=== PATIENT | male | born 1995 | race Caucasian/White ===

== ENCOUNTER 2020-11-23 00:02 | Emergency (ER) | payer BC, SELFPAY ==
[2020-11-23 00:08] VITALS: BP 127/78; PULSE 71; RESP 16; TEMP 36.8; O2SAT 100; BMI 26.6
--- NOTE | 2020-11-23 00:13 | HMH.EDDENT ---
ED Disposition Clinical Impression: Pain, dental, Infected dental caries Disposition: Home, Self-Care Condition on Discharge: Good Instructions: DI for Dental Pain Additional Instructions: see dentist and use meds Prescriptions: clindamycin HCL [Clindamycin HCl] 300 mg PO TID #21 cap Transmission Status: Pending to [facility] [id number] Ketorolac Tromethamine [Toradol 10mg tablet] 10 mg PO Q6HP PRN #10 tab MDD 40mg/day PRN Reason: Moderate To Severe Pain Transmission Status: Pending to [facility] [id number] - Critical Care Critical Care Time: No Attestation: On , the high probability of a clinically significant, sudden or life threatening deterioration of the following system(s) required my full and direct attention, intervention and personal management. The time I documented below is in addition to time spent performing reported procedures but includes the following listed in this critical care notation. Medical Decision Making - Medical Records Medical records reviewed: Yes: I reviewed the patient's medical records. - Arthur Inquiry Pt receiving controlled substance: No Vital Signs: 11/23/20 00:08 Temperature 98.3 F Temperature Source Oral Pulse Rate [Right Brachial] 71 Respiratory Rate 16 Blood Pressure [Right Arm] 127/78 Blood Pressure Mean [Right Arm] 94 Blood Pressure Source [Right Arm] Automatic Cuff Blood Pressure Position [Right Arm] Sitting 02 Sat by Pulse Oximetry 100 Oxygen Delivery Method Room Air Dental HPI - General Chief complaint: Dental/Oral Stated complaint: Toothache Time Seen by Provider: 11/23/20 00:10 Mode of Arrival: Family Vehicle Source of Information: Patient, Medical Record Limitations: No Limitations Description of Symptoms (Recalled from ER Triage Doc. by RN): left low jaw pain - History of Present Illness HPI Narrative: pt with dental pain lt lower over the last few days MD Complaint: tooth pain Onset (ago): day(s) Severity: moderate Context: history of dental caries Associated symptoms: gum swelling Treatment prior to arrival: oral analgesic - Related Data Previous Rx's Medication Instructions Recorded Ketorolac Tromethamine [Toradol 10 mg PO Q6HP PRN #10 tab MDD 11/23/20 10mg tablet] 40mg/day clindamycin HCL [Clindamycin HCl] 300 mg PO TID #21 cap 11/23/20 Allergies Allergy/AdvReac Type Severity Reaction Status Date / Time No Known Allergies Allergy Verified 11/23/20 00:11 [facility] History - Hepatitis A Screen Drug use history?: No High risk sexual behaviors?: No History of sexually transmitted infection?: No Currently employed?: No Childcare worker?: No Do you have indoor plumbing?: No Do you have electricity?: No Attestation statement:: This patient has been screened for Hepatitis A risk factors. I have reviewed the patient's past medical history: Yes ROS Obtained: Yes All systems reviewed & no additional complaints - Constitutional Constitutional: Denies fever(s) - Eyes Eyes: Denies change in vision - ENT Ears, Nose, Mouth, and Throat: Reports as per HPI, Reports dental pain, Denies sore throat - Cardiovascular Cardiovascular: Denies chest pain - Respiratory Respiratory: Denies cough - Gastrointestinal Gastrointestingal: Denies: abdominal pain - Genitourinary Male Genitourinary: Denies hematuria - Musculoskeletal Musculoskeletal: Denies joint pain, Denies joint swelling - Integumentary/Breasts Skin/Breast: Denies rash - Neurologic Neurologic: Denies headache(s), Denies seizure-like activity Physical Exam - General General appearance: alert - Head Head exam: normocephalic - Eye Eye exam: Present: PERRL, EOMI. Absent: scleral icterus - ENT ENT exam: Present: mucous membranes moist - Expanded ENT Exam Teeth exam: Present: dental caries, gingival swelling - Neck Neck exam: Present: full ROM, trachea midline - Respiratory Respiratory exam: Absent: respiratory distress
[2020-11-23 00:19] VITALS: BP 123/70; PULSE 78; RESP 18; TEMP 37.1; O2SAT 98
== END 2020-11-23 00:32 | disposition home or self-care (01) ==
PROVIDERS: Emergency Provider Emergency Medicine
DX: K02.9 Dental caries, unspecified (principal); K08.89 Other specified disorders of teeth and supporting structures
CPT/HCPCS: 96372; 99282

== ENCOUNTER → 2021-06-18 08:22 | Outpatient (CLI) | payer BC, SELFPAY | PROVIDERS: Visit Provider Nurse Practitioner | DX: Z20.822 Contact with and (suspected) exposure to COVID-19 (principal) | CPT/HCPCS: C9803; U0003; U0005 ==

== ENCOUNTER 2021-07-25 14:30 | Emergency (ER) | payer BC, SELFPAY ==
[2021-07-25 14:42] VITALS: BP 0/0; PULSE 0; RESP 0; TEMP -17.7; TEMP 0
== END 2021-07-25 14:43 | disposition left against medical advice (07) ==
PROVIDERS: Emergency Provider Nurse Practitioner Family
DX: Z53.21 Procedure and treatment not carried out due to patient leaving prior to being seen by health care provider (principal)

== ENCOUNTER 2021-07-25 20:48 | Emergency (ER) | payer BC, SELFPAY ==
[2021-07-25 20:50] VITALS: BP 131/91; PULSE 77; RESP 18; TEMP 37; O2SAT 99; BMI 21.7
--- NOTE | 2021-07-25 20:57 | HMH.EDUTC ---
[facility] Disposition Clinical Impression: Infected dental caries, Pain, dental Disposition: Home, Self-Care Condition on Discharge: Good Instructions: DI for Dental Pain, DI for Tooth Decay Additional Instructions: follow up with dentist edy dental balls q6 for pain tylenol or motrin as needed for pain return or be seen in ed if no improvement Prescriptions: Amoxicillin [Amoxicillin 500mg Tab] 500 mg PO BID 10 Days #20 tab Transmission Status: Pending to [id number] Referrals: Provider,Referral, MD [Primary Care Provider] - Time of Disposition: 21:04 Medical Decision Making - Arthur Inquiry Pt receiving controlled substance: No Vital Signs: 07/25/21 20:50 Temperature 98.6 F Temperature Source Oral Pulse Rate [Right Brachial] 77 Respiratory Rate 18 Blood Pressure [Right Arm] 131/91 H Blood Pressure Mean [Right Arm] 104 Blood Pressure Source [Right Arm] Automatic Cuff Blood Pressure Position [Right Arm] Sitting 02 Sat by Pulse Oximetry 99 Oxygen Delivery Method Room Air Orders (Tests/Meds): ED MEDICATIONS Discontinued Medications Generic Name Dose Route Start Last Admin Trade Name Steven PRN Reason Stop Dose Admin Benzocaine/Butamben/Tetracaine HCl 1 gm 07/25/21 20:56 07/25/21 20:57 Tetracaine/Benzocaine/Butamben 56 Gm [place] TP 07/25/21 20:57 1 gm ONCE ONE Administration Lidocaine HCl 15 ml 07/25/21 20:56 07/25/21 20:57 Lidocaine 2% Viscous Sharifa 15ml Udc PO 07/25/21 20:57 15 ml ONCE ONE Administration [facility] HPI - General Chief complaint: Urgent Treatment Center Stated complaint: right sided tooth ache Time Seen by Provider: 07/25/21 20:57 Mode of Arrival: Ambulatory Source of Information: Patient Limitations: No Limitations Description of Symptoms (Recalled from Triage Doc. by RN): PATIENT C/O DENTAL PAIN TO LEFT LOWER SIDE X 4 DAYS HEENT Symptoms (Recalled from RN notes): Yes Resp Symptoms (Recalled from RN notes): No Skin Symptoms (Recalled from RN notes): No MS Symptoms (Recalled from RN notes): No Functional Status (Recalled from RN notes): WNL - History of Present Illness Provider Complaint: 25 yr old male presents for dental pain for 4 days. pt states he seen a dentist and had a tooth worked on and pain improved but as soon as the numbness wore off the pain returned. he has tried to call the dentisit with no answer. Pt states he has a tooth on the bottom that is also bad broken at gum line and he is unsure if pain is coming from tooth that is fixed ot the broken tooth. he was not placed on antibiotics - Related Data Previous Rx's Medication Instructions Recorded Amoxicillin [Amoxicillin 500mg Tab] 500 mg PO BID 10 Days #20 tab 07/25/21 Allergies Allergy/AdvReac Type Severity Reaction Status Date / Time No Known Allergies Allergy Verified 11/23/20 00:11 - Worker's Comp Is this a Worker's Comp case?: No [facility] History - Hepatitis A Screen Drug use history?: No High risk sexual behaviors?: No History of sexually transmitted infection?: No Currently employed?: No Childcare worker?: No Do you have indoor plumbing?: Yes Do you have electricity?: Yes Attestation statement:: This patient has been screened for Hepatitis A risk factors. I have reviewed the patient's past medical history: Yes ROS Obtained: Yes Systems reviewed as appropriate & no additional complaints - Constitutional Constitutional: Reports system reviewed and no additional complaints, except as zachu, Denies fever(s) - Eyes Eyes: Reports system reviewed and no additional complaints, except as ulices Denies dry eyes - ENT Ears, Nose, Mouth, and Throat: Reports system reviewed and no additional complaints, except as zachu, Reports dental pain - Cardiovascular Cardiovascular: Reports system reviewed and no additional complaints, except as zachu, Denies chest pain - Respiratory Respiratory: Reports system reviewed and no additional complaints, except as ulices D
[2021-07-25 20:58] VITALS: BP 131/91; PULSE 77; RESP 18; TEMP 37; O2SAT 99
== END 2021-07-25 21:08 | disposition home or self-care (01) ==
PROVIDERS: Emergency Provider Nurse Practitioner Family
DX: K02.9 Dental caries, unspecified (principal); K08.89 Other specified disorders of teeth and supporting structures
CPT/HCPCS: 99202; 99212; 99213; G0463

== ENCOUNTER 2021-07-25 21:15 | Emergency (ER) | payer BC, SELFPAY ==
[2021-07-25 21:15] VITALS: BP 160/78; PULSE 78; RESP 16; TEMP 36.4; O2SAT 100; BMI 21.7
--- NOTE | 2021-07-25 21:48 | HMH.EDDENT ---
ED Disposition Clinical Impression: Pain, dental, Infected dental caries Disposition: Home, Self-Care Condition on Discharge: Good Instructions: DI for Dental Pain Additional Instructions: see dentist and pcp for follow up Prescriptions: Ketorolac Tromethamine [Toradol 10mg tablet] 10 mg PO Q6HP PRN #10 tab MDD 40mg/day PRN Reason: Moderate To Severe Pain Transmission Status: Pending to [id number] Referrals: Provider,Referral, MD [Primary Care Provider] - - Critical Care Critical Care Time: No Attestation: On 07/25/21, the high probability of a clinically significant, sudden or life threatening deterioration of the following system(s) required my full and direct attention, intervention and personal management. The time I documented below is in addition to time spent performing reported procedures but includes the following listed in this critical care notation. Medical Decision Making - Medical Records Medical records reviewed: Yes: I reviewed the patient's medical records. - Arthur Inquiry Pt receiving controlled substance: No Vital Signs: 07/25/21 21:15 Temperature 97.6 F Temperature Source Oral Pulse Rate [Right] 78 Respiratory Rate 16 Blood Pressure [Right Arm] 160/78 H Blood Pressure Mean [Right Arm] 105 Blood Pressure Source [Right Arm] Automatic Cuff 02 Sat by Pulse Oximetry 100 Oxygen Delivery Method Room Air Medical Decision Narrative: will give toradol and abx and ask pt to see dentist Dental HPI - General Chief complaint: Dental/Oral Stated complaint: tooth pain Time Seen by Provider: 07/25/21 21:48 Mode of Arrival: Family Vehicle Source of Information: Patient, Medical Record Limitations: No Limitations Description of Symptoms (Recalled from ER Triage Doc. by RN): Pt c/o pain to left lower tooth and jaw. Poor dentition is noted, tooth pt is pointing to is brown and several missing teeth in mouth. States I can't get into see a dentist for a while . Denies fever or chills. No swelling or edema present to face or jaw area. States I just need something for pain. Tylenol and Ibuprofen just aren't helping . He was seen in [facility] today and given dental balls, states this has not helped. - History of Present Illness HPI Narrative: has dental pain and presents for follow up has seen [facility] MD Complaint: tooth pain Onset (ago): day(s) Severity: moderate Context: history of dental caries, poor dental care Treatment prior to arrival: topical analgesic - Related Data Previous Rx's Medication Instructions Recorded Amoxicillin [Amoxicillin 500mg Tab] 500 mg PO BID 10 Days #20 tab 07/25/21 Ketorolac Tromethamine [Toradol 10 mg PO Q6HP PRN #10 tab MDD 07/25/21 10mg tablet] 40mg/day Allergies Allergy/AdvReac Type Severity Reaction Status Date / Time No Known Allergies Allergy Verified 11/23/20 00:11 [facility] History - Hepatitis A Screen Drug use history?: No High risk sexual behaviors?: No History of sexually transmitted infection?: No Currently employed?: No Childcare worker?: No Do you have indoor plumbing?: Yes Do you have electricity?: Yes Attestation statement:: This patient has been screened for Hepatitis A risk factors. I have reviewed the patient's past medical history: Yes ROS Obtained: Yes All systems reviewed & no additional complaints - Constitutional Constitutional: Denies fever(s) - Eyes Eyes: Denies change in vision - ENT Ears, Nose, Mouth, and Throat: Reports as per HPI, Reports dental pain, Denies sore throat - Cardiovascular Cardiovascular: Denies chest pain - Respiratory Respiratory: Denies shortness of breath - Gastrointestinal Gastrointestingal: Denies: abdominal pain - Genitourinary Male Genitourinary: Denies hematuria - Musculoskeletal Musculoskeletal: Denies joint swelling - Integumentary/Breasts Skin/Breast: Denies rash - Neurologic Neurologic: Denies seizure-like activity Physical Exam -
[2021-07-25 22:00] VITALS: BP 154/78; PULSE 64; RESP 16; TEMP 36.7; O2SAT 99
== END 2021-07-25 22:06 | disposition home or self-care (01) ==
PROVIDERS: Emergency Provider Emergency Medicine
DX: K08.89 Other specified disorders of teeth and supporting structures (principal); K02.9 Dental caries, unspecified
CPT/HCPCS: 96372; 99281; 99283

== ENCOUNTER 2021-08-04 11:07 | Emergency (ER) | payer BC, SELFPAY ==
[2021-08-04 11:26] VITALS: BP 128/72; PULSE 78; RESP 16; TEMP 37.3; O2SAT 98; BMI 21.7
--- NOTE | 2021-08-04 11:44 | HMH.EDUTC ---
[facility] [place] Disposition Clinical Impression: Encounter for laboratory testing for COVID-19 virus Disposition: Home, Self-Care Condition on Discharge: Good Instructions: Diarrhea, DI for COVID-19 (Suspected or Confirmed ) Additional Instructions: *Monitor Temp, Over the counter Motrin or Tylenol as directed/as needed Tylenol every 4 hours and Motrin every 6 hours (as long as your family doctor has told you that you can take it) for fever or pain. and straight to ER if unable to lower temp less than 101.0 after medication given *Warm salt water gargles may help to soothe the throat *Throat Lozenges *Warm fluids like tea with honey may help to soothe the throat *Sleep elevated *Humidifier/Vaporizer Follow up IMMEDIATELY for new or worsening symptoms or no Noticeable improvement over the next 48-72 hours. 911 for difficulty breathing or swallowing You were tested for today for COVID19 your test result should be back in the next 24-48 hours, you may check your results on the [facility] if you have trouble logging on you may call support If you are positive someone from the hospital will be calling you Make sure to take your Vitamins Vit. C Vit D and Zinc if you can take them Referrals: Provider,Referral, MD [Primary Care Provider] - As needed Forms: Work/School Release Time of Disposition: 11:55 Medical Decision Making - Arthur Inquiry Pt receiving controlled substance: No Arthur was queried for this patient: No Vital Signs: 08/04/21 11:26 Temperature 99.1 F Temperature Source Oral Pulse Rate [Left Radial] 78 Respiratory Rate 16 Blood Pressure [Left Arm] 128/72 Blood Pressure Mean [Left Arm] 90 Blood Pressure Source [Left Arm] Automatic Cuff Blood Pressure Position [Left Arm] Sitting 02 Sat by Pulse Oximetry 98 Oxygen Delivery Method Room Air Orders (Tests/Meds): ORDERS Category Date Time Status Covid-19 Nasal PCR ([facility]) Routine Lab 08/04/21 11:21 Received [facility] HPI - General Stated complaint: wants Covid test,body aches Time Seen by Provider: 08/04/21 11:44 Mode of Arrival: Ambulatory Source of Information: Patient Limitations: No Limitations Description of Symptoms (Recalled from Triage Doc. by RN): pt requesting covid swab. Pt c/o body aches, diarrhea, and headache x2 days. States no known exposure. HEENT Symptoms (Recalled from RN notes): No Resp Symptoms (Recalled from RN notes): No Skin Symptoms (Recalled from RN notes): No MS Symptoms (Recalled from RN notes): No Functional Status (Recalled from RN notes): n/a - History of Present Illness Provider Complaint: Patient states that he has been having body aches, chills, medrano and diarrhea States that he wanted to get tested for COVID States that he has not been exposed to COVID that he is aware of but wanted to get tested - Related Data Previous Rx's Medication Instructions Recorded Amoxicillin [Amoxicillin 500mg Tab] 500 mg PO BID 10 Days #20 tab 07/25/21 Ketorolac Tromethamine [Toradol 10 mg PO Q6HP PRN #10 tab MDD 07/25/21 10mg tablet] 40mg/day Allergies Allergy/AdvReac Type Severity Reaction Status Date / Time No Known Allergies Allergy Verified 11/23/20 00:11 - Worker's Comp Is this a Worker's Comp case?: No [facility] History - Hepatitis A Screen Drug use history?: No High risk sexual behaviors?: No History of sexually transmitted infection?: No Currently employed?: No Childcare worker?: No Do you have indoor plumbing?: Yes Do you have electricity?: Yes Attestation statement:: This patient has been screened for Hepatitis A risk factors. I have reviewed the patient's past medical history: Yes ROS Obtained: Yes All systems reviewed & no additional complaints, Yes Systems reviewed as appropriate & no additional complaints - Constitutional Constitutional: Reports system reviewed and no additional complaints, except as docu, Reports body ache, Reports chills, Reports fatigue, Reports headache(s) - ENT
[2021-08-04 12:11] VITALS: BP 128/72; PULSE 78; RESP 16; TEMP 37.3; O2SAT 98
== END 2021-08-04 12:11 | disposition home or self-care (01) ==
PROVIDERS: Emergency Provider Nurse Practitioner
DX: Z20.822 Contact with and (suspected) exposure to COVID-19 (principal); B34.9 Viral infection, unspecified
CPT/HCPCS: 99212; C9803; G0463; U0003; U0005

== ENCOUNTER 2021-12-30 15:15 | Emergency (ER) | payer OTHER, SELFPAY ==
[2021-12-30 15:44] VITALS: BP 0/0; PULSE 0; RESP 0; TEMP -17.7; TEMP 0
--- NOTE | 2021-12-30 15:45 | PC.NURSE ---
patient brought paperwork back up to window, and asked if he would be charged for covid test. told patient he would get bill in mail, that we do not charge today. patient stated that he did not want a bill, and was going to leave without being seen for a covid test.
== END 2021-12-30 15:46 | disposition left against medical advice (07) ==
PROVIDERS: Emergency Provider Nurse Practitioner
DX: Z53.21 Procedure and treatment not carried out due to patient leaving prior to being seen by health care provider (principal)

== ENCOUNTER → 2022-03-09 07:50 | Outpatient (CLI) | payer OTHER, SELFPAY ==
--- NOTE | 2022-03-09 07:54 | US_ITS ---
FINAL REPORT CLINICAL HISTORY: RUQ PAIN,N/V,COLITIS,ABD PAIN FINDINGS: Sonographic images of the abdomen were obtained. The liver has an unremarkable appearance with normal echogenicity. There is sludge in the gallbladder. There is a small polyp in the anterior gallbladder wall measuring 4 mm. There is no evidence of biliary ductal dilatation. The common hepatic duct measures 3 mm, which is within normal limits. Limited images of the pancreas are unremarkable. The spleen size is normal. The right kidney measures 10.8 cm in length. The left kidney measures 10.0 cm in length. There is normal renal echogenicity. There is no evidence of hydronephrosis. The aorta has an unremarkable appearance. Limited images of the inferior vena cava are unremarkable. IMPRESSION: Unremarkable abdominal ultrasound with no acute abnormality identified. Reviewed, Interpreted and Dictated by Chadd Underwood III, MD Transcribed by Ying Esquivel Authenticated and [facility]
== END ==
LOC: RAD 07:50
PROVIDERS: PCP Nurse Practitioner Family; Visit Provider Nurse Practitioner Family
DX: R10.11 Right upper quadrant pain (principal); R10.84 Generalized abdominal pain; R11.0 Nausea; R11.10 Vomiting, unspecified; K52.831 Collagenous colitis
CPT/HCPCS: 76700

== ENCOUNTER 2022-05-11 14:36 | Emergency (ER) | payer OTHER, SELFPAY ==
[2022-05-11 16:20] VITALS: BP 131/79; PULSE 84; RESP 19; TEMP 36.8; O2SAT 98; BMI 20.9
--- NOTE | 2022-05-11 16:33 | EXP.UTC ---
Discharge Plan Disposition Patient Disposition: Home, Self-Care Condition: Good Prescriptions Prescriptions: New polymyxin B sulf-trimethoprim [Polytrim] 10,000 unit- 1 mg/mL drops 2 drp ophthalmic (eye) Q6H 7 Days Qty: 10 0RF Rx Instructions: while awake; do not exceed 6 doses in 24 hours pseudoephedrine HCl [Sudafed 12 Hour] 120 mg tablet extended release 120 mg PO Q12H PRN (Reason: nasal congestion) Qty: 10 0RF No Action ketorolac 10 MG tablet 10 mg PO Q6HP MDD 40mg/day PRN (Reason: Moderate To Severe Pain) Qty: 10 0RF Rx Instructions: Therapy initiated with IV/IM dose amoxicillin 500 MG tablet 500 mg PO BID 10 Days Qty: 20 0RF Referrals Follow up/Referrals: Provider,Referral, MD [Primary Care Provider] - See instructions Activity Restrictions/Add. Instructions Additional Instructions/Restrictions: Wash hands well before and after applying drops to eyes Warm wash rag and baby shampoo can help to clear matting and drainage from eyes Take Sudafed as prescribed for nasal congestion Return if needed Follow up with Eye Doctor if no improvement or any worsening of symptoms Clinical Impressions Clinical Impression: Conjunctivitis Stand Alone Forms Stand Alone Forms: Work/School Release Instructions Patient Instructions: DI for Conjunctivitis, Conjunctivitis, DI for Nasal Congestion Discharge ED Provider: Katheryn Wilson [facility] [place] [facility] HPI General Stated complaint: Rt eye swollen, congestion, runny nose Time Seen by Provider: 05/11/22 16:33 History of Present Illness Provider Complaint: Patient states that his daughter had pink eye last week and he was putting the drops into her eyes and now he woke up and his right eye was puffy and matted and he has been having drainage from his eye that has got worse today States that he has also been having nasal congestion and drainage for about a week that hasnt got any better wanting to see if he could get something for it Related Data Previous Rx's Medication Instructions Recorded amoxicillin 500 mg tablet 500 mg PO BID 10 days #20 tabs 07/25/21 ketorolac 10 mg tablet 10 mg PO Q6HP PRN Moderate To 07/25/21 Severe Pain #10 tabs polymyxin B sulfate 10,000 2 drp ophthalmic (eye) Q6H 7 days 05/11/22 unit-trimethoprim 1 mg/mL eye #10 mL drops (Polytrim) pseudoephedrine HCl 120 mg 120 mg PO Q12H PRN nasal 05/11/22 tablet,extended release (Sudafed congestion #10 tabs 12 Hour) Allergies Allergy/AdvReac Type Severity Reaction Status Date / Time No Known Allergies Allergy Verified 11/23/20 00:11 [facility] Disclaimer: The information contained in this section may have been updated after the patient was seen, as this information can be updated by other users. Medical History (Updated 05/11/22 @ 16:41 by Katheryn Wilson APRN) Anxiety Asthma Social History Smoking Status: Smoker, status unknown alcohol intake: never current occupational status: other Travel in the last 8 weeks: None ROS Obtained: Yes All systems reviewed & no additional complaints except as documented and Yes Systems reviewed as appropriate & no additional complaints except as documented Constitutional Constitutional: Reports system reviewed and no additional complaints, except as documented and Reports as per HPI Eyes Eyes: Reports system reviewed and no additional complaints, except as documented, Reports as per HPI, Reports eye discharge and Reports irritation ENT Ears, Nose, Mouth, and Throat: Reports system reviewed and no additional complaints, except as documented, Reports as per HPI, Reports nasal congestion and Reports nasal discharge Cardiovascular Cardiovascular: Reports system reviewed and no additional complaints, except as documented and Reports as per HPI Respiratory Respiratory: Reports system reviewed and no additional complaints, except as documented and Reports as per HPI Physical Exam General General appearance: alert and in no
[2022-05-11 16:44] VITALS: BP 131/79; PULSE 84; RESP 19; TEMP 36.8; O2SAT 98
== END 2022-05-11 16:51 | disposition home or self-care (01) ==
PROVIDERS: Emergency Provider Nurse Practitioner
DX: H10.9 Unspecified conjunctivitis (principal); R09.81 Nasal congestion; J45.909 Unspecified asthma, uncomplicated; F41.9 Anxiety disorder, unspecified
CPT/HCPCS: 99213; G0463

== ENCOUNTER → 2022-10-29 10:32 | Outpatient (CLI) | payer OTHER, SELFPAY ==
--- NOTE | 2022-10-29 10:53 | XR_ITS ---
FINAL REPORT CLINICAL HISTORY: COUGH,SPUTUM,RT SIDED CHEST PAIN X 1MONTH COMPARISON: None FINDINGS: Two views of the chest show mild bronchial wall thickening consistent with bronchitis. Pulmonary vascularity is normal. Heart and mediastinum are unremarkable. No pleural effusion is present. IMPRESSION: Mild bronchial wall thickening consistent with bronchitis. Reviewed, Interpreted and Dictated by Chadd Underwood III, MD Transcribed by Brandi Spence Authenticated and [facility]
== END ==
PROVIDERS: PCP Internal Medicine; Visit Provider Internal Medicine
DX: R07.89 Other chest pain (principal); R05.9 Cough, unspecified; J40 Bronchitis, not specified as acute or chronic
CPT/HCPCS: 71046

== ENCOUNTER → 2023-03-10 06:58 | Outpatient (CLI) | payer OTHER, SELFPAY ==
--- NOTE | 2023-03-10 07:03 | CT_ITS ---
FINAL REPORT TECHNIQUE: Thin section axial CT images of the facial bones and sinuses were obtained without contrast. Coronal reformatted images were also obtained.This study was performed with techniques to keep radiation doses as low as reasonably achievable, (ALARA). Individualized dose reduction techniques using automated exposure control or adjustment of mA and/or kV according to the patient''''s size were employed. CLINICAL HISTORY: recurrent sinusitis FINDINGS: There is near-total opacification of the left maxillary sinus. Soft tissue obstructs the left maxillary sinus ostium and infundibulum. There is opacification of the left anterior and mid ethmoid air cells. There is mucosal thickening in the left frontal sinus. There is mild mucosal thickening in the right maxillary sinus. There is a left michell bullosa. Right nasal septal deviation is noted. No fracture or acute bony abnormality is identified. IMPRESSION: Sinus disease as above. Reviewed, Interpreted and Dictated by Chadd Underwood III, MD Transcribed by Oriana Han Authenticated and [facility]
== END ==
LOC: RAD 06:59
PROVIDERS: PCP Internal Medicine; Visit Provider Nurse Practitioner
DX: J32.8 Other chronic sinusitis (principal)
CPT/HCPCS: 70486

== ENCOUNTER → 2023-04-18 16:12 | Outpatient (CLI) | payer OTHER, SELFPAY ==
--- NOTE | 2023-04-18 16:22 | ECG_ITS ---
APPROVED REPORT Exam: Resting ECG HR:71 bpm ECG Measurements Heart Rate 71 AXES OK 147 P 74 QRSd 106 QRS 75 QT 367 T 65 QTc 389 Conclusion SINUS RHYTHM WITH SINUS ARRHYTHMIA POSSIBLE RIGHT VENTRICULAR CONDUCTION DELAY [RSR (QR) IN V1/V2] BORDERLINE ECG UNCONFIRMED REPORT Electronically signed by : Gavino Mason MD 04/19/2023 20:12:07
[2023-04-18 16:40] LABS: Basophils # 0.1 K/mm3 (0-0.2); Basophils % 0.7 % (0.1-2.0); Eosinophils # 0.4 K/mm3 (0.0-0.4); Eosinophils % 3.9 % (0.1-12.0); Hematocrit 43.9 % (42.0-52.0); Hemoglobin 15.3 g/dL (14.1-18.0); Lymphocytes # 3.4 K/mm3 (0.7-4.5); Lymphocytes % 34.5 % (10-50); Mean Corpuscular HGB Conc 34.8 g/dL (31.8-35.4); Mean Corpuscular Volume 89.1 fl (80-94); Mean Platelet Volume 7.1 fl (7.4-10.4); Monocytes # 0.6 K/mm3 (0.1-1.0); Monocytes % 5.9 % (1.7-9.3); Neutrophils # 5.4 K/mm3 (1.8-7.8); Neutrophils % 54.9 % (37.0-80.0); Platelet Count 317 K/mm3 (142-424); Red Blood Count 4.93 M/mm3 (4.60-6.20); Red Cell Distribution Width 14.5 % (11.5-17.5); White Blood Count 9.8 K/mm3 (4.8-10.8)
[2023-04-18 16:57] LABS: Chloride 102 mmol/L (98-107); Potassium 3.9 mmoL/L (3.5-5.1); Sodium 137 mmol/L (136-145)
[2023-04-18 16:59] LABS: Blood Urea Nitrogen 9 mg/dl (9-20); Estimated Glomerular Filt Rate 80 ml/min (>60); GFR (African American) 96 ML/MIN (>60)
[2023-04-18 17:00] LABS: Alanine Aminotransferase 19 U/L (12-78); Albumin Level 4.6 g/dl (3.5-5.0); Albumin/Globulin Ratio 1.8 (1.1-1.8); Alkaline Phosphatase 69 U/L (38-126); Anion Gap 9.9 mEq/L (5-15); Aspartate Amino Transferase 25 U/L (17-59); Bilirubin,Total 0.5 mg/dl (0.2-1.3); Calcium 9.3 mg/dl (8.4-10.2); Carbon Dioxide 29 mmol/L (22.0-30.0); Globulin 2.5 g/dL (1.3-3.2); Glucose 117 mg/dl (74-100); Total Protein,Serum 7.1 g/dl (6.3-8.2)
== END ==
PROVIDERS: PCP Internal Medicine; Visit Provider Nurse Practitioner
DX: J32.9 Chronic sinusitis, unspecified (principal); J34.9 Unspecified disorder of nose and nasal sinuses
CPT/HCPCS: 36415; 80053; 85025; 93005

== ENCOUNTER 2023-04-27 06:34 | Day surgery (SDC) | payer OTHER, SELFPAY ==
[2023-04-25 15:57] VITALS: BMI 23.7
[2023-04-27] VITALS (9 sets, daily range): BP systolic 121–149; BP diastolic 63–102; PULSE 70–104; RESP 16–18; TEMP 35.9–36.4; O2SAT 97–100
--- NOTE | 2023-04-27 07:00 | SUR.PREOP ---
Pt was unsure about the name of his surgery today and was unable to describe what was being done. Will wait for MD to see pt and explain procedure before consent is signed. Note left for surgery nurses and explained to Jane and note left for Dr. Beasley as well as reminder to update H and P. Report given to Vinod Pan RN of above information before leaving pre-op.
--- NOTE | 2023-04-27 07:18 | P.PNANES_ITS ---
[facility] Disclaimer: The information contained in this section may have been updated after the patient was seen, as this information can be updated by other users. Medical History Anxiety Asthma Nasal drainage Recurrent sinusitis Sinus disease Surgical History History of mandibular surgery Family History Other No significant family history Social History Smoking Status: Smoker, status unknown alcohol intake: never substance use type: denies use current occupational status: other Travel in the last 8 weeks: None [facility] Anesthesia Checklist Patient Identification Patient Identification: Arm Band Structural Data Admitted From: Home Planned Operative Procedure/s: Nasal Septoplasty, FESS Consent for Planned Operative Procedure(s) Verified: Yes Verified Documents: Surgical Consent and History and Physical NPO Status Verified Time NPO: 00:00 Additional verifications Anesthesia Reactions: No Hx Blood Transfusions: No Blood Transfusion Reaction: No Airway Assessment Mallampati Score:: Class II C-Spine Mobility Assessed: Yes TMJ Mobility Assessed: Yes Dentition: Good Dentition Neurological Assessment Level of Consciousness: Awake and Alert Anesthesia Plan Anesthesia Risk discussed: Yes Anesthesia Plan: Verified ASA Class: II Anesthesia Type: General
--- NOTE | 2023-04-27 10:48 | EXP.OP.NOTE ---
Date of procedure: 04/27/23 Pre-op Diagnosis:: Chronic sinusitis, deviated septum, left inferior turbinate hypertrophy Post-op Diagnosis:: Chronic sinusitis, deviated septum, left inferior turbinate hypertrophy Procedure performed:: Functional endoscopic sinus surgery with nasal endoscopy and left complete ethmoidectomy, nasal endoscopy and left frontal sinusotomy, nasal endoscopy and the left maxillary antrostomy and removal of antral mucosa disease, nasal endoscopy and right maxillary antrostomy, nasal endoscopy and right anterior ethmoidectomy, septoplasty, submucous resection of the left inferior turbinate Surgeon:: Terrance Beasley MD [employer] EDUCATION MATH TEACHER:: Other Anesthesia: GETA Estimated blood loss (mL): 50 Operative findings:: Severely deviated septum to the right, left inferior turbinate hypertrophy, severe chronic sinusitis with [facility] obstruction of the left frontal, ethmoid, and maxillary sinus with purulent material completely filling the left maxillary sinus. Operative note:: The patient was brought to the operating room and after adequate general anesthesia the nose was prepped and draped in the usual sterile fashion and 1% lidocaine with epinephrine used to locally infiltrate the septum, middle meatuses bilaterally, and left inferior turbinate attention was first drawn to the septum. A right hemitransfixion incision was made and mucosal flaps elevated off the bony and cartilaginous septum and then a large bony spur from the vomer was resected as was a cartilaginous spur on the floor the nose on the right side. The cartilaginous septum was then mobilized and brought back over the midline maxillary crest and then the mucosal flaps returned to anatomic position and held in place with a 4-0 plain gut horizontal mattress suture and hemitransfixion incision closed with 4-0 chromic. Attention was then drawn to the left middle meatus. Using a 0 degree sinus endoscope the left middle meatus was visualized and the middle turbinate was then medialized and then uncinectomy performed with the pediatric backbiter and microdebrider clearing the nasofrontal tract and infundibulum. The natural ostium to the maxillary sinus was then enlarged and cleared of obstructing polypoid disease and then purulent material from the left maxillary sinus was cultured and then suctioned clear and then the maxillary sinus was appropriately irrigated with normal saline until clear. Anterior and posterior ethmoidectomy was then performed working through the ethmoid bulla using a microdebrider to clear disease polypoid mucosa in the anterior and posterior ethmoid wall sparing normal mucosa at the margins of dissection. The nasofrontal tract was cleared of obstructing polyp disease to the frontal sinus was well-tolerated and the nasofrontal tract easily cannulated. Nova pack was placed in the left middle meatus then attention drawn to the right side. In a similar fashion the right millimeters was visualized and the middle turbinate medialized and uncinectomy performed with a pediatric backbiter and microdebrider clearing the nasofrontal tract and infundibulum. The natural ostium to the maxillary sinus was then enlarged until the maxillary sinus was well aerated. Anterior ethmoidectomy was performed clearing disease polypoid mucosa in the anterior ethmoid while sparing all mucosa posteriorly. Nova pack was placed in the right middle meatus and attention drawn to the inferior turbinate on the left. Submucosal resection of the redundant soft tissue of the inferior turbinate was performed with the microdebrider turbinate blade through an anterior stab incision. Christiansen splints were then placed on the septum and secured to the columella using 3-0 nylon and the procedure concluded. All counts correct and blood loss was 50 mL and patient was sent recovery in stable condition. Condition: stable Disposition: PACU Complications:: No complications
--- NOTE | 2023-04-27 11:01 | P.PNANES_ITS ---
[facility] Anesthesia Record Part I Anesthesia Record I Intake, IV Amount: 800 Hydration: Adequate Estimated blood loss (mL): 50 Urine output (mL): 0 Blood Products used (#): none Blood Pressure: 147/102 SaO2: 97 Pulse Rate: 104 Airway Patency: Patent Respiratory Rate: 18 Temperature: 96.7 F Patient is:: Awake and Stable Stable to PACU at:: 10:59
--- NOTE | 2023-04-29 04:46 | EXP.ANES.II ---
[facility] Anesthesia Record Part II Anesthesia Record Part II Discharge Time: 11:24 Destination: Surgical Day Care (OP Surgery) PACU nurse assessment reviewed?: Yes Patient Condition:: Good Anesthesia Complications:: None Swallowing reflex intact?: Yes Airway Patency: Patent Cyanosis?: No Blood Pressure: 149/90 SaO2: 100 Respiratory Rate: 18 Pulse Rate: 70 Temperature: 97.2 F Mental Status: Alert & Oriented Pain level:: 5 Nausea and/or vomitting:: None Intake, IV Amount: 0 Hydration: Adequate
[2023-04-29 04:49] VITALS: BP 149/90; PULSE 70; RESP 18; TEMP 36.2; O2SAT 100
== END 2023-04-27 12:04 | disposition home or self-care (01) ==
PROVIDERS: PCP Internal Medicine; Visit Provider Otolaryngology
PROC: (CPT 30520; principal; 2023-04-27 08:00)
DX: J32.9 Chronic sinusitis, unspecified (principal); J34.2 Deviated nasal septum; J34.3 Hypertrophy of nasal turbinates
CPT/HCPCS: 31253; 31267; 30140; 31256; 31254; 30520; 87075; 87205; 96374; J2405